=== PATIENT | female | born 1985 | race Caucasian/White ===

== ENCOUNTER → 2023-01-25 | Outpatient (CLI) | payer BC ==
--- NOTE | 2023-01-25 11:14 | MM ---
Reason for Exam: Clinical finding. Baseline mammogram. Patient History: Menarche at age 13. Patient has no children. Hysterectomy at age 36. Paternal aunt had breast cancer under age 50. Mother had breast cancer under age 50. Risk Values: Lia 5 year model risk: 0.7%. NCI Lifetime model risk: 19.1%. Prior Study Comparison: Patient's first Mammogram. Tissue Density: The breast tissue is extremely dense which could obscure a lesion on mammography. Findings: Analyzed By CAD. Left breast: There is a 7 mm asymmetry on CC view 12 mm from the nipple which corresponds with the palpable marker. Right breast: No new suspicious masses, calcifications or distortions. Overall Assessment: Incomplete: need additional imaging evaluation, BI-RAD 0 Management: Diagnostic Breast Ultrasound of the left breast. Results were given to the patient verbally at the time of exam. Patient should continue monthly self-breast exams. A clinical breast exam by your physician is recommended on an annual basis. This exam should not preclude additional follow-up of suspicious palpable abnormalities. Note on Lia scores and lifetime risk: 1. A Lia score greater than 3% is considered moderate risk. If this is the case, consider specialist referral to assess eligibility for a risk reducing agent. 2. If overall lifetime risk for the development of breast cancer is 20% or higher, the patient may qualify for future screening with alternating mammogram and breast MRI. Electronically signed and approved by: Ricco Farah DO
--- NOTE | 2023-01-25 11:14 | USB ---
Reason for Exam: Clinical finding. Patient History: Menarche at age 13. Patient has no children. Hysterectomy at age 36. Paternal aunt had breast cancer under age 50. Mother had breast cancer under age 50. Risk Values: Lia 5 year model risk: 0.7%. NCI Lifetime model risk: 19.1%. Technique: Method: Targeted. Findings: The area of palpable concern of the left breast and the retroareolar of the left breast were scanned. Imaged: Ultrasound imaging of: Area of concern, retroareolar region and axilla. Left breast: 2 anechoic cysts are present 1 cm from nipple at 6:00 measuring up to 6 mm. These are felt to correlate with palpable abnormality. These measure 4 x 3 x 6 mm and 4 x 3 x 5 mm. No evidence for organizing fluid collection or mass.Imaged: Ultrasound imaging of: Area of concern in the nipple region. Left breast: 2 anechoic cysts are present 1 cm from nipple at 6:00 measuring up to 6 mm. These are felt to correlate with palpable abnormality. These measure 4 x 3 x 6 mm and 4 x 3 x 5 mm. No evidence for organizing fluid collection or mass. Overall Assessment: Probably benign, BI-RAD 3 Management: Diagnostic Breast Ultrasound of the left breast in 6 months. Precautionary ultrasound for stability in 6 months. A clinical breast exam by your physician is recommended on an annual basis and results should be correlated with mammographic findings. This exam should not preclude additional follow-up of suspicious palpable abnormalities. Results were given to the patient verbally at the time of exam. Electronically signed and approved by: Ricco Farah DO
== END | disposition home or self-care (01) ==
LOC: RADMAMWWP 10:11
PROVIDERS: ATTEND Obstetrics & Gynecology
DX: N60.02 Solitary cyst of left breast (principal); N63.20 Unspecified lump in the left breast, unspecified quadrant; Z80.3 Family history of malignant neoplasm of breast
CPT/HCPCS: 77062; 77066

== ENCOUNTER 2024-06-25 08:07 | Emergency (ER) | payer BC ==
[2024-06-25 08:15] VITALS: TEMP 98.6
--- NOTE | 2024-06-25 08:31 | ED ---
General Adult HPI - General Chief complaint: Syncope Stated complaint: dizzy/passed out at mamogram appt Time Seen by Provider: 06/25/24 08:13 Source: patient, RN notes reviewed Mode of arrival: ambulatory Limitations: no limitations - History of Present Illness Initial comments: Patient is a 39-year-old female present to the emergency department with c oncerns with syncopal episode. Episode occurred just prior to arrival while having a mammogram done. Patient did strike her head. Patient has mild headache. No laceration. No neck or back pain. No chest pain or dyspnea. No abdominal pain or pelvic pain. Patient denies possible as she has had previous hysterectomy. Patient does have history of syncopal episodes approximately half a dozen times in the past. - Related Data Home Medications Medication Instructions Recorded Confirmed No Known Home Medications 10/22/22 10/29/22 Allergies Allergy/AdvReac Type Severity Reaction Status Date / Time No Known Allergies Allergy Verified 06/25/24 08:15 Review of Systems ROS Statement: Those systems with pertinent positive or pertinent negative responses have been documented in the HPI. ROS Other: All systems not noted in ROS Statement are negative. Constitutional: Denies: fever Eyes: Denies: eye pain ENT: Denies: ear pain Respiratory: Denies: cough Cardiovascular: Denies: chest pain Endocrine: Denies: fatigue Gastrointestinal: Denies: abdominal pain Musculoskeletal: Denies: back pain Skin: Denies: rash Neurological: Reports: as per HPI. Denies: weakness, confusion Past Medical History Additional Past Medical History / Comment(s): UTERINE FIBROID History of Any Multi-Drug Resistant Organisms: None Reported Additional Past Surgical History / Comment(s): WISDOM TEETH REMOVED UNDER ANESTHESIA Past Anesthesia/Blood Transfusion Reactions: No Reported Reaction Past Psychological History: No Psychological Hx Reported Smoking Status: Former smoker Past Alcohol Use History: Occasional Past Drug Use History: None Reported - Past Family History Mother Family Medical History: Cancer Additional Family Medical History / Comment(s): BREAST General Exam Limitations: no limitations General appearance: alert, in no apparent distress Head exam: Present: atraumatic, normocephalic Eye exam: Present: normal appearance, PERRL, EOMI. Absent: nystagmus ENT exam: Present: normal oropharynx Neck exam: Present: normal inspection. Absent: tenderness Respiratory exam: Present: normal lung sounds bilaterally Cardiovascular Exam: Present: regular rate, normal rhythm GI/Abdominal exam: Present: soft. Absent: tenderness Extremities exam: Present: normal inspection, full ROM. Absent: tenderness, calf tenderness Neurological exam: Present: alert, CN II-XII intact. Absent: motor sensory deficit Expanded Neurological exam: Present: protecting the airway Speech: Present: fluid speech Cranial nerves: EOM's Intact: Normal Sensory exam: Upper Extremity Light Touch: Normal, Lower Extremity Light Touch: Normal Motor strength exam: RUE: 5, LUE: 5, RLE: 5, LLE: 5 Eye Response: (4) open spontaneously Motor Response: (6) obeys commands Verbal Response: (5) oriented Psychiatric exam: Present: normal affect, normal mood Skin exam: Present: normal color Course Vital Signs 06/25/24 06/25/24 08:13 10:49 Temperature 98.6 F Pulse Rate 72 73 Respiratory 20 15 Rate Blood Pressure 109/68 113/80 O2 Sat by Pulse 97 98 Oximetry EKG Findings - EKG Results: EKG: interpreted by ERMD (Borderline right axis.), sinus rhythm, normal QRS, normal ST/T Medical Decision Making - Medical Decision Making Was pt. sent in by a medical professional or institution (, PA, LAB TECH, urgent care, hospital, or long-term...) When possible be specific @ -Patient was sent over from mammography Did you speak to anyone other than the patient for history (EMS, parent, family, police, friend...)? What history was obtained from this source @ -No Did you review nursing and triage notes (agree or disagree)? Why? @ -I reviewed and agree with nursing and triage notes Were old charts reviewed (outside hosp., previous admission, EMS record, old EKG, old radiological studies, urgent care reports/EKG's, long-term records)? Report findings @ -No old charts were reviewed Differential Diagnosis (chest pain, altered mental status, abdominal pain women, abdominal pain men, vaginal bleeding, weakness, fever, dyspnea, syncope, headache, dizziness, GI bleed, back pain, seizure, CVA, palpatations, mental health, musculoskeletal)? @ -Differential Syncope: Valvular disease, hypertrophic cardiomyopathy, pulmonary embolism, tamponade, tachycardia, bradycardia, [place], hypovolemia, hemorrhage, dissection, anemia, intracranial hemorrhage, seizure, hypoglycemia, carbon monoxide poisoning, this is not meant to be an all-inclusive list. EKG interpreted by me (3pts min.). @ -As above X-rays interpreted by me (1pt min.). @ -Chest x-ray shows no acute process CT interpreted by me (1pt min.). @ -CT brain reveals no acute abnormality U/S interpreted by me (1pt. min.). @ -None done What testing was considered but not performed or refused? (CT, X-rays, U/S, labs)? Why? @ -Consider testing however patient has had previous hysterectomy. What meds were considered but not given or refused? Why? @ -None Did you discuss the management of the patient with other professionals ( professionals i.e. , PA, LAB TECH, lab, RT, psych nurse, hospital social worker, oil burner journeyman, teacher, environmental protection officer, case liner)? Give summary @ -No Was smoking cessation discussed for >3mins.? @ -No Was critical care preformed (if so, how long)? @ -No Were there social determinants of health that impacted care today? How? (Homelessness, low income, unemployed, alcoholism, drug addiction, transportation, low edu. Level, literacy, decrease access to med. care, retirement, rehab)? @ -No Was there de-escalation of care discussed even if they declined (Discuss DNR or withdrawal of care, Hospice)? DNR status @ -No What co-morbidities impacted this encounter? (DM, HTN, Smoking, COPD, CAD, Cancer, CVA, ARF, Chemo, Hep., AIDS, mental health diagnosis, sleep apnea, morbid obesity)? @ -History of syncopal episode Was patient admitted / discharged? Hospital course, mention meds given and route, prescriptions, significant lab abnormalities, going to OR and other pertinent info. @ -Patient presents with syncopal episode, otherwise symptom-free. Evaluation unremarkable. Patient will be discharged for follow-up with her doctor. Patient reevaluated and updated. Undiagnosed new problem with uncertain prognosis? @ -No Drug Therapy requiring intensive monitoring for toxicity (Heparin, Nitro, Insulin, Cardizem)? @ -No Were any procedures done? @ -No Diagnosis/symptom? @ -Syncope Acute, or Chronic, or Acute on Chronic? @ -Acute Uncomplicated (without systemic symptoms) or Complicated (systemic symptoms)? @ -Default Side effects of treatment? @ -No Exacerbation, Progression, or Severe Exacerbation? @ -No Poses a threat to life or bodily function? How? (Chest pain, USA, IN, pneumonia, PE, COPD, DKA, ARF, appy, cholecystitis, CVA, Diverticulitis, Homicidal, Suicidal, threat to staff... and all critical care pts) @ -No - Lab Data Result diagrams: 06/25/24 08:48 06/25/24 08:48 Lab Results 06/25/24 06/25/24 06/25/24 Range/Units 08:48 08:48 08:48 WBC 5.7 (3.8-10.6) k/uL RBC 4.68 (3.80-5.40) m/uL Hgb 13.7 (11.4-16.0) gm/dL Hct 41.8 (34.0-46.0) % MCV 89.3 (80.0-100.0) fL MCH 29.4 (25.0-35.0) pg MCHC 32.9 (31.0-37.0) g/dL RDW 12.0 (11.5-15.5) % Plt Count 239 (150-450) k/uL MPV 7.8 Neutrophils % 74 % Lymphocytes % 19 % Monocytes % 4 % Eosinophils % 1 % Basophils % 0 % Neutrophils # 4.2 (1.3-7.7) k/uL Lymphocytes # 1.1 (1.0-4.8) k/uL Monocytes # 0.2 (0-1.0) k/uL Eosinophils # 0.1 (0-0.7) k/uL Basophils # 0.0 (0-0.2) k/uL PT 11.8 (10.0-12.5) sec INR 1.1 (<1.2) APTT 23.4 (22.0-30.0) sec Sodium 137 (137-145) mmol/L Potassium 4.0 (3.5-5.1) mmol/L Chloride 106 (98-107) mmol/L Carbon Dioxide 21 L (22-30) mmol/L Anion Gap 10 mmol/L BUN 11 (7-17) mg/dL Creatinine 0.63 (0.52-1.04) mg/dL Est GFR (CKD-EPI)AfAm >90 (>60 ml/min/1.73 sqM) Est GFR (CKD-EPI)NonAf >90 (>60 ml/min/1.73 sqM) Glucose 104 H (74-99) mg/dL Calcium 8.9 (8.4-10.2) mg/dL Magnesium 2.0 (1.6-2.3) mg/dL Total Bilirubin 0.5 (0.2-1.3) mg/dL AST 23 (14-36) U/L ALT 14 (4-34) U/L Alkaline Phosphatase 46 (38-126) U/L Troponin I (0.000-0.034) ng/mL Total Protein 6.8 (6.3-8.2) g/dL Albumin 4.3 (3.5-5.0) g/dL 06/25/24 Range/Units 08:48 WBC (3.8-10.6) k/uL RBC (3.80-5.40) m/uL Hgb (11.4-16.0) gm/dL Hct (34.0-46.0) % MCV (80.0-100.0) fL MCH (25.0-35.0) pg MCHC (31.0-37.0) g/dL RDW (11.5-15.5) % Plt Count (150-450) k/uL MPV Neutrophils % % Lymphocytes % % Monocytes % % Eosinophils % % Basophils % % Neutrophils # (1.3-7.7) k/uL Lymphocytes # (1.0-4.8) k/uL Monocytes # (0-1.0) k/uL Eosinophils # (0-0.7) k/uL Basophils # (0-0.2) k/uL PT (10.0-12.5) sec INR (<1.2) APTT (22.0-30.0) sec Sodium (137-145) mmol/L Potassium (3.5-5.1) mmol/L Chloride (98-107) mmol/L Carbon Dioxide (22-30) mmol/L Anion Gap mmol/L BUN (7-17) mg/dL Creatinine (0.52-1.04) mg/dL Est GFR (CKD-EPI)AfAm (>60 ml/min/1.73 sqM) Est GFR (CKD-EPI)NonAf (>60 ml/min/1.73 sqM) Glucose (74-99) mg/dL Calcium (8.4-10.2) mg/dL Magnesium (1.6-2.3) mg/dL Total Bilirubin (0.2-1.3) mg/dL AST (14-36) U/L ALT (4-34) U/L Alkaline Phosphatase (38-126) U/L Troponin I <0.012 (0.000-0.034) ng/mL Total Protein (6.3-8.2) g/dL Albumin (3.5-5.0) g/dL Disposition Clinical Impression: Syncope Disposition: HOME SELF-CARE Condition: Stable Instructions (If sedation given, give patient instructions): Syncope (ED) Additional Instructions: Please do follow-up with primary care physician in the next couple of days for recheck. Return for passing out, headache or weakness or confusion, chest pain or shortness of breath, abdominal or back pain, worsening symptoms or any other concerns. Is patient prescribed a controlled substance at d/c from ED?: No Referrals: Ashlee Squires DO [Primary Care Provider] - 1-2 days Blake Preciado MD [STAFF PHYSICIAN] - 1-2 days Time of Disposition: 11:02
[2024-06-25 09:02] LABS: Basophils % (A) 0 %; Eosinophils # (A) 0.1 k/uL (0-0.7); Eosinophils % (A) 1 %; HCT 41.8 % (34.0-46.0); HGB 13.7 gm/dL (11.4-16.0); Lymphocytes # (A) 1.1 k/uL (1.0-4.8); Lymphocytes % (A) 19 %; MCH 29.4 pg (25.0-35.0); MCHC 32.9 g/dL (31.0-37.0); MCV 89.3 fL (80.0-100.0); Mean Platelet Volume 7.8; Monocytes # (A) 0.2 k/uL (0-1.0); Monocytes % (A) 4 %; Neutrophils # (A) 4.2 k/uL (1.3-7.7); Neutrophils % (A) 74 %; Platelet Count 239 k/uL (150-450); RBC 4.68 m/uL (3.80-5.40); WBC 5.7 k/uL (3.8-10.6)
[2024-06-25 09:12] LABS: INR 1.1 (<1.2); Partial Thromboplastin Time 23.4 sec (22.0-30.0); Prothrombin Time 11.8 sec (10.0-12.5)
[2024-06-25 09:16] LABS: ALT 14 U/L (4-34); AST 23 U/L (14-36); African American GFR (CKD) >90 (>60 ml/min/1.73 sqM); Albumin 4.3 g/dL (3.5-5.0); Alkaline Phosphatase 46 U/L (38-126); Anion Gap 10 mmol/L; Blood Urea Nitrogen 11 mg/dL (7-17); Calcium 8.9 mg/dL (8.4-10.2); Carbon Dioxide 21 mmol/L (22-30); Chloride 106 mmol/L (98-107); Glucose 104 mg/dL (74-99); Non-African American GFR(CKD) >90 (>60 ml/min/1.73 sqM); Sodium 137 mmol/L (137-145); Total Bilirubin 0.5 mg/dL (0.2-1.3); Total Protein 6.8 g/dL (6.3-8.2)
--- NOTE | 2024-06-25 09:37 | CT ---
EXAMINATION TYPE: CT brain wo con DATE OF EXAM: 06/25/2024 9:21 AM COMPARISON: None. CLINICAL INDICATION: Female, 39 years old with history of syncope, syncope, fell backwards, hit back of head, no LOC TECHNIQUE: CT of the brain is performed utilizing 3 mm thick sections through the posterior fossa and 3 mm thick sections through the remaining calvarium. Study is performed within 24 hours of arrival to the hospital. Contrast used: mL of , (none if empty) Oral contrast used: (none if empty) CT DLP: 1080.4 mGycm, Automated exposure control for dose reduction was used. FINDINGS: No abnormal hyperdensity is present to suggest an acute intracranial hemorrhage. No mass lesion is evident. No acute infarcts are evident. Ventricles and sulci are appropriate for the patient age. Paranasal sinuses and mastoid air cells within the [id number] are clear. IMPRESSION: 1. No acute intracranial process. Follow up MRI can be performed as clinically indicated. [facility], , 06/25/2024 9:35 AM
--- NOTE | 2024-06-25 09:42 | XR ---
EXAMINATION TYPE: XR chest 2V DATE OF EXAM: 06/25/2024 COMPARISON: NONE CLINICAL INDICATION: Female, 39 years old with history of syncope; , TECHNIQUE: XR chest 2V views of the chest. FINDINGS: The lungs are clear and there is no pneumothorax, pleural effusion, or focal pneumonia. Heart size normal and no overt failure. Osseous structures intact. IMPRESSION: 1. No acute process. [facility], , 06/25/2024 9:40 AM
[2024-06-25 10:51] VITALS: BP 113/80; RESP 15
[2024-06-25 11:17] VITALS: PULSE 75
== END 2024-06-25 11:19 | disposition home or self-care (01) ==
LOC: EC 08:07
DX: R55 Syncope and collapse (principal); Z87.891 Personal history of nicotine dependence
CPT/HCPCS: 36415; 70450; 71046; 80053; 83735; 84484; 85025; 85610; 85730; 93005; 99284

== ENCOUNTER → 2024-06-25 | Outpatient (CLI) | payer BC ==
--- NOTE | 2024-06-26 08:21 | MM ---
Reason for Exam: Clinical finding. Last mammogram was performed 1 year(s) and 5 month(s) ago. Indicated Problems: Lump or thickening of the left side for 1 Year(s). Patient History: Menarche at age 13. Patient has no children. Hysterectomy at age 36. Perimenopausal. Paternal aunt had breast cancer under age 50. Mother had breast cancer under age 50. Risk Values: Lia 5 year model risk: 0.9%. NCI Lifetime model risk: 19.0%. Prior Study Comparison: 01/25/2023 Bilateral MG 3D diag mammo w/cad DAVON[facility], [facility]. Tissue Density: The breasts are extremely dense, which lowers the sensitivity of mammography. Findings: Analyzed By CAD. The pattern is symmetrical. Scattered benign punctate calcifications are present. No suspicious abnormality at the left palpable marker is identified at this time. No suspicious groups of microcalcifications, spiculated or lobular masses, architectural distortion or other secondary signs of malignancy are mammographically apparent. Overall Assessment: Incomplete: need additional imaging evaluation, BI-RAD 0 Management: Diagnostic Breast Ultrasound of both breasts. A negative mammogram report should not preclude additional follow up of suspicious palpable abnormalities. Patient should continue monthly self breast exam. A clinical breast exam by your physician is recommended on an annual basis and results should be correlated with mammographic findings. Note on Lia scores and lifetime risk: 1. A Lia score greater than 3% is considered moderate risk. If this is the case, consider specialist referral to assess eligibility for a risk reducing agent. 2. If overall lifetime risk for the development of breast cancer is 20% or higher, the patient may qualify for future screening with alternating mammogram and breast MRI. [facility], , 06/26/2024 8:18 AM. Electronically signed and approved by: German Cervantes D.O. Radiologis
--- NOTE | 2024-06-26 08:58 | USB ---
Reason for Exam: Clinical finding. Patient History: Menarche at age 13. Patient has no children. Hysterectomy at age 36. Perimenopausal. Paternal aunt had breast cancer under age 50. Mother had breast cancer under age 50. Risk Values: Lia 5 year model risk: 0.9%. NCI Lifetime model risk: 19.0%. Technique: Method: Whole Breast Handheld. Prior Study Comparison: 01/25/2023 Bilateral MG 3D diag mammo w/cad [facility]ONTE, [facility]. 06/25/2024 Bilateral MG 3D diag mammo w/cad [facility], [facility]. Findings: The whole breast of both breasts, the axilla of both breasts and the retroareolar of both breasts were scanned. Right breast: There are scattered benign-appearing simple cysts present sample 1:00 position 3 cm from the nipple measuring 0.5 cm. An additional simple cyst is 4:00 position 3 cm from nipple measuring 0.5 cm. There is a simple cyst 9:00 position 3 cm from the nipple measuring 0.6 cm. There is a posterior simple cyst against the chest wall 11:00 position 3 cm from the nipple measuring 1.1 cm. Cystlike areas in the retroareolar region. Right axillary lymph node cortex at the upper limits for normal for size. Left breast: There is a cyst at the 12:00 position 3 cm from nipple measuring 0.7 cm previously contained punctate nodularity internally. Short-term follow-up recommended. Additional cyst with internal density is at the 1:00 position 3 cm the nipple. Simple appearing cysts at the 2:00 position 3 cm from the nipple At the palpable region 6:00 position 1 cm from nipple there are multiple small grouped cysts. This was present previously and appears similar. Additional simple appearing cyst is at the 9:00 position 3 cm from nipple measuring 0.5 cm. Overall Assessment: Probably benign, BI-RAD 3 Management: Diagnostic Breast Ultrasound of the left breast in 6 months. A clinical breast exam by your physician is recommended on an annual basis and results should be correlated with mammographic findings. This exam should not preclude additional follow-up of suspicious palpable abnormalities. Results were given to the patient verbally at the time of exam. [facility], , 06/26/2024 8:56 AM. Electronically signed and approved by: German Cervantes D.O. Radiologis [facility]
== END | disposition home or self-care (01) ==
LOC: RADMAMWWP 07:28
PROVIDERS: ATTEND Obstetrics & Gynecology Obstetrics
DX: N60.01 Solitary cyst of right breast (principal); N60.02 Solitary cyst of left breast; R68.89 Other general symptoms and signs; Z80.3 Family history of malignant neoplasm of breast
CPT/HCPCS: 77062; 77066

== ENCOUNTER → 2024-09-04 | Outpatient (CLI) | payer BC ==
[2024-09-04 11:30] VITALS: BP 116/74; PULSE 74; RESP 17; TEMP 98.5
--- NOTE | 2024-09-04 11:34 | P.GSCN ---
History of Present Illness Consult date: 09/04/24 Reason for Consult: left breast lump Requesting physician: Ashlee Squires History of present illness: Alma Delia is a 39 year old female seen in consultation for Dr. Squires regarding a left breast lump. She had a bilateral mammogrma on 06-25-24 BIRAD 0, recommend left breast ultrasound. The ultrasound was done on 06-25-24 multiple cyst noted throughout the breast and repeat ultrasound in 6 months recommended. A cluster of cyst noted at 6 OClock BIRAD 3 repeat left breast ultrasound in 6 months. The spot at the 6 OClock position noted about 1 1/2 year ago, perhaps smaller. It is not painful. She states during her mammogram she had some right nipple discharge but has not noted any before or after. It is not bloody to her knowledge. She is not complaining of any trauma or infection in the breast. Has never had any surgery on her breast. Patient had genetic testing done BRCA which was negative. Note Dr. Squires 05-25-24 reviewed caffiene: 1 cup coffee/day nicotine:none chocolate: occasional BCP: used them for about 2 years in her 20's, more recently an IUD, had a hysterectomy about 2 years ago Family History: mother: breast cancer early 40's, at 54 from breast cancer (? genetic testing) paternal aunt: breast cancer paternal grandfather: colon cancer Hormonal History: menarche: 13 G0 hysterectomy done for a cyst, and no cancer, left both ovaries Surgical History: hysterectomy wisdom teeth Medical History: anemia in the past Social History: nicotine: none alcohol: occasional dtugs: none Review of Systems - Constitutional Constitutional Comment(s): headaches Denies fever, Denies weight loss - EENT Eyes: denies blurred vision Ears: deny: decreased hearing, tinnitus Ears, nose, mouth and throat: Denies dysphagia - Breasts bilateral: as per HPI - Cardiovascular Denies chest pain, Denies shortness of breath - Respiratory Denies cough, Denies 7 - Gastrointestinal Reports as per HPI - Genitourinary Genitourinary: Denies dysuria, Denies hematuria Menstruation: Reports post hysterectomy - Musculoskeletal Reports as per HPI - Integumentary Denies rash, Denies unusual bruising - Neurological Reports headaches, Reports syncope - Psychiatric Reports as per HPI - Endocrine Reports as per HPI - Hematologic/Lymphatic Reports as per HPI - Allergic/Immunologic Reports as per HPI Past Medical History Additional Past Medical History / Comment(s): UTERINE FIBROID History of Any Multi-Drug Resistant Organisms: None Reported Additional Past Surgical History / Comment(s): WISDOM TEETH REMOVED UNDER ANESTHESIA Past Anesthesia/Blood Transfusion Reactions: No Reported Reaction Past Psychological History: No Psychological Hx Reported Smoking Status: Former smoker Past Alcohol Use History: Occasional Past Drug Use History: None Reported - Past Family History Mother Family Medical History: Cancer Additional Family Medical History / Comment(s): BREAST Medications and Allergies Home Medications Medication Instructions Recorded Confirmed Type No Known Home Medications 10/22/22 10/29/22 History Allergies Allergy/AdvReac Type Severity Reaction Status Date / Time No Known Allergies Allergy Verified 06/25/24 08:15 Surgical - Exam - General no distress - Eyes normal ocular movement - ENT no hearing loss - Neck trachea midline - Respiratory normal respiratory effort - Cardiovascular Rhythm: regular Heart Sounds: normal: S1, S2 - Abdomen Abdomen: soft, non tender, no guarding, no rigid, no rebound - Integumentary normal turgor - Neurologic no disoriented, no combative - Musculoskeletal normal gait - Psychiatric oriented to time, oriented to person, oriented to place, speech is normal, memory intact Breast Exam: BRA: 32B Inspection: Bilateral grade 1 ptosis Right breast: Multi positional exam no dominant masses or nodules of concern Right axilla: No adenopathy of concern Left breast: Appears to be denser than the right breast Multi positional exam there is some increased nodularity at the 6 o'clock position it is freely mobile and appears to be in the same location as cyst noted on ultrasound Left axilla: No adenopathy of concern Results Mammogram and ultrasound results reviewed from 06-25-2024 ultrasound results of the left breast BI-RADS 3 multiple cyst with a cystic cluster at 6:00 Assessment and Plan Assessment: Impression: Fibrocystic breast changes Palpable change left breast 6:00 Family history mother of breast cancer in her 50s Plan: The palpable area in the left breast has been present for at least a year and although this appears to be consistent with the cystic changes noted on ultrasound we do not have definitive tissue diagnosis. After discussion with the patient she is going to have a repeat left breast ultrasound in November which will be the 6-month jasmine from her last 1 and then have surgical resection of the area which is palpable if it remains palpable at that time. If anything changes prior to that she will be seen again sooner. We have discussed lifestyle modification and she will consider decreasing caffeine intake. We have discussed MRI surveillance of her breast as well, we will attempt to get bilateral breast MRI this time secondary to her very strong family history of breast cancer as well as palpable fibrocystic changes particularly throughout the left breast CC: DR. Squires
== END ==
LOC: WWCWWP 10:43
PROVIDERS: ATTEND Surgery
DX: N60.12 Diffuse cystic mastopathy of left breast (principal); N64.59 Other signs and symptoms in breast; Z80.3 Family history of malignant neoplasm of breast

== ENCOUNTER → 2024-10-05 | Outpatient (CLI) | payer BC ==
--- NOTE | 2024-10-08 12:20 | BMR ---
EXAM DATE: 10/07/2024 EXAM DESCRIPTION: MRI-Breast Bilat (W/WO Contrast) INDICATION: Abnormal prior imaging, family history of breast cancer. Lump in the left breast. COMPARISON: Comparison is made with relevant prior imaging in PACS. CONTRAST: 5.5 cc of Gadavist TECHNIQUE: Multiplanar MRI imaging of both breasts was performed with a dedicated breast coil, before and after intravenous administration of gadolinium contrast, using the standard breast mass protocol. Computer-aided detection was used to aid in interpretation. FINDINGS: General breast composition: The breast is heterogeneously dense Background parenchymal enhancement: Marked FINDINGS: Right Breast: Review of the dynamic contrast-enhanced series shows multiple areas of focal non mass enhancement scattered throughout the breast. The T2 weighted series shows scattered benign cysts. No lymphadenopathy. Left Breast: Review of the dynamic contrast-enhanced series shows multiple areas of focal non mass enhancement scattered throughout the breast. No significant MR mass or abnormality at 6 o'clock, 1 cm from the nipple in the area of palpable concern as indicated by the patient. The T2 weighted series shows scattered benign cysts. No lymphadenopathy. IMPRESSION: There are multiple areas of focal non mass enhancement scattered throughout the bilateral breasts, as this is a baseline MRI these may represent benign areas of parenchymal enhancement however diagnostic MRI is recommended in 6 months to ensure stability. BI-RADS Category3- Probably benign No definite MR mass or abnormality at 6 o'clock, 1 cm from the nipple in the area of palpable concern as indicated by the patient. Management of breast pain should be based on the clinical level of concern. Clinical evaluation and followup are recommended, with management to be determined based on the clinical assessment. Scattered bilateral benign breast cysts. No lymphadenopathy Recommendation: Bilateral breast MRI in 6 months to ensure stability. MTDD
== END | disposition home or self-care (01) ==
LOC: RADMRIMAIN 20:15
PROVIDERS: ATTEND Surgery
DX: N60.12 Diffuse cystic mastopathy of left breast (principal); N60.11 Diffuse cystic mastopathy of right breast; Z80.3 Family history of malignant neoplasm of breast
CPT/HCPCS: 77049; A9585

== ENCOUNTER → 2024-12-25 | Outpatient (CLI) | payer BC ==
--- NOTE | 2024-12-25 07:47 | MM ---
Reason for Exam: Follow-up at short interval from prior study. Last screening mammogram was performed 6 month(s) ago. Patient History: Menarche at age 13. Patient has no children. Hysterectomy at age 36. Perimenopausal. Patient used Hormonal Contraceptives for 8 years. Paternal aunt had breast cancer under age 50. Mother had breast cancer under age 50. Risk Values: Lia 5 year model risk: 0.9%. NCI Lifetime model risk: 19.0%. Prior Study Comparison: 01/25/2023 Bilateral MG 3D diag mammo w/cad DAVONTE, [facility]. 01/25/2023 Left US breast LT, [facility]. 06/25/2024 Bilateral MG 3D diag mammo w/cad DAVONTE, [facility]. 06/26/2024 Bilateral US breast BILAT, [facility]. 10/05/2024 Bilateral MR breast bilat wo/w con, [facility]. Tissue Density: The breasts are extremely dense, which lowers the sensitivity of mammography. Findings: Analyzed By CAD. Dense fibronodular tissue without new suspicious masses, calcifications or distortions. Overall Assessment: Incomplete: need additional imaging evaluation, BI-RAD 0 Management: Diagnostic Breast Ultrasound of the left breast. Results were given to the patient verbally at the time of exam. Patient should continue monthly self-breast exams. A clinical breast exam by your physician is recommended on an annual basis. This exam should not preclude additional follow-up of suspicious palpable abnormalities. Note on Lia scores and lifetime risk: 1. A Lia score greater than 3% is considered moderate risk. If this is the case, consider specialist referral to assess eligibility for a risk reducing agent. 2. If overall lifetime risk for the development of breast cancer is 20% or higher, the patient may qualify for future screening with alternating mammogram and breast MRI. [facility], , 12/25/2024 7:44 AM. Electronically signed and approved by: Ricco Farah DO
--- NOTE | 2024-12-25 08:24 | USB ---
Reason for Exam: Follow-up at short interval from prior study. Patient History: Menarche at age 13. Patient has no children. Hysterectomy at age 36. Perimenopausal. Patient used Hormonal Contraceptives for 8 years. Paternal aunt had breast cancer under age 50. Mother had breast cancer under age 50. Risk Values: Lia 5 year model risk: 0.9%. NCI Lifetime model risk: 19.0%. Technique: Method: Whole Breast Handheld. Prior Study Comparison: 01/25/2023 Bilateral MG 3D diag mammo w/cad DAVONTE, [facility]. 06/25/2024 Bilateral MG 3D diag mammo w/cad DAVONTE, [facility]. Findings: The whole breast of the left breast, the axilla of the left breast and the retroareolar of the left breast were scanned. Technique utilized:US breast complete LT Image; Ultrasound imaging of: All 4 quadrants, the retroareolar region and axilla. 6:00 1 cm from the nipple new hypoechoic mass adjacent to possible cyst versus dilated duct measuring up to 4 x 5 x 7 mm. Biopsy recommended of this lesion. Additional scattered anechoic cysts, clusters of 6 and mildly complex cysts. At least one of the cysts at 9:00 3 cm nipple measures up to 7 mm which may be larger than prior where it measured 5 mm. Additional dilated ducts at 11:00. At least one of the Negative left axilla. Overall Assessment: Suspicious, BI-RAD 4 Management: Ultrasound Core Biopsy of the left breast. Ultrasound Biopsy of lesion at 6:00 1 cm from the nipple on the left breast A clinical breast exam by your physician is recommended on an annual basis and results should be correlated with mammographic findings. This exam should not preclude additional follow-up of suspicious palpable abnormalities. Results were given to the patient verbally at the time of exam. [facility], , 12/25/2024 8:22 AM. Electronically signed and approved by: Ricco Farah DO
== END | disposition home or self-care (01) ==
LOC: RADMAMWWP 07:19
PROVIDERS: ATTEND Obstetrics & Gynecology Obstetrics
DX: R92.8 Other abnormal and inconclusive findings on diagnostic imaging of breast (principal); R92.343 Mammographic extreme density, bilateral breasts; Z80.3 Family history of malignant neoplasm of breast; Z92.0 Personal history of contraception
CPT/HCPCS: 77062; 77066

== ENCOUNTER → 2024-12-30 | Day surgery (SDC) | payer BC ==
--- NOTE | 2025-01-01 12:42 | MM ---
Reason for Exam: Post Procedure Mammogram. Last screening mammogram was performed less than 1 month ago. Patient History: Menarche at age 13. Patient has no children. Hysterectomy at age 36. Perimenopausal. Patient used Hormonal Contraceptives for 8 years. Paternal aunt had breast cancer under age 50. Mother had breast cancer under age 50. Risk Values: Lia 5 year model risk: 0.9%. NCI Lifetime model risk: 19.0%. Prior Study Comparison: 01/25/2023 Bilateral MG 3D diag mammo w/cad DAVONTE, [facility]. 01/25/2023 Left US breast LT, [facility]. 06/25/2024 Bilateral MG 3D diag mammo w/cad DAVONTE, [facility]. 10/05/2024 Bilateral MR breast bilat wo/w con, [facility]. 12/25/2024 Bilateral MG 3D diag mammo w/cad DAVONTE, [facility]. 12/25/2024 Left US breast LT, [facility]. Tissue Density: Left: The breasts are extremely dense, which lowers the sensitivity of mammography. Pathology Description: Location: 6 o'clock. Marker Left Behind. Needle Type: Celero Cores: 3 The procedure of ultrasound guided core biopsy was explained to the patient. Benefits, alternatives, and risks were discussed. An informed consent was then obtained. The patient was placed in supine positioning for imaging and for the procedure. Preprocedure ultrasound redemonstrates a vague hypoechoic area measuring near 7 mm at 6:00 position 1 cm distance from nipple in the left breast. The overlying skin was prepped and draped in usual sterile fashion. Lidocaine buffered with bicarbonate was used as anesthetic into the skin and subcutaneous tissue up to area of concern in the left breast. Under ultrasound guidance, a vacuum assisted biopsy gun device was used to obtain 3 core samples. Following this, a biopsy clip was left in lesion. The patient tolerated the procedure well without any immediate complication. The patient was kept in the radiology department for short stay after the procedure and then discharged home in stable condition. Postprocedure mammogram: The patient was transferred to mammography for physician ordered post procedure mammogram for clip placement verification. Post procedure mammogram demonstrates appropriate placement of clip. Impression: Successful, uncomplicated ultrasound guided core biopsy of area of concern in the left breast, full pathology results to follow. Low index of suspicion noted at time of procedure. Patient noted to have recent BI-RADS 3 MRI approximately 3 months earlier without suspicious abnormality at this level. [facility], , 12/30/2024 12:09 PM. Pathology Results: Result: Benign, Fibrocystic change. Pathology and radiology were reviewed. Findings are concordant. LEFT BREAST, 6:00, ULTRASOUND GUIDED CORE BIOPSY: Benign breast tissue with proliferative fibrocystic change with apocrine metaplasia, focal florid usual ductal hyperplasia and columnar cell change. Overall Assessment: Benign Assessment: MG diagnostic mammo LT wo CAD. - Left: Benign, BI-RAD 2. Management: Diagnostic Breast Ultrasound of the left breast in 6 months. Electronically signed and approved by: Rodger Wiseman M.D.
== END ==
LOC: RADUSWWP 10:07
PROVIDERS: ATTEND Surgery
DX: N60.82 Other benign mammary dysplasias of left breast (principal); R92.8 Other abnormal and inconclusive findings on diagnostic imaging of breast; Z80.3 Family history of malignant neoplasm of breast
CPT/HCPCS: 88305; 77065; 19083; A4648